=== PATIENT | female | born 1995 ===

== ENCOUNTER 2017-09-05 20:51 | Emergency (ER) | payer SELFPAY ==
[~2017-09-05] VITALS: Ht 157.5 cm; Wt 53.6 kg
[2017-09-05 20:55] VITALS: BP 121/80
[2017-09-05] MEDS ORDERED: NAPROSYN500 MG PO (21:20)
== END 2017-09-05 21:40 | disposition home or self-care (01) | DRG 605 ==
LOC: ED 20:51
DX: S90.121A Contusion of right lesser toe(s) without damage to nail, initial encounter (principal); W22.8XXA Striking against or struck by other objects, initial encounter; Y93.E2 Activity, laundry; Y92.009 Unspecified place in unspecified non-institutional (private) residence as the place of occurrence of the external cause